=== PATIENT | male | born 1970 | race Caucasian/White ===

== ENCOUNTER 2024-01-01 19:39 | Emergency (ER) | payer MEDICARE, SELFPAY ==
[2024-01-01 19:40] VITALS: BP 156/112
[2024-01-01 20:00] VITALS: BP 138/103
[2024-01-01 20:03] LABS: % Basophils 0.3 % (0-2); % Eosinophils 0.3 % (0-6); % Immature Granulocytes 0.4 % (0-0.5); % Lymphocytes 12.6 % (20.5-51.1); % Monocytes 11.9 % (1.7-9.3); % Neutrophils 74.5 % (42.2-75.2); Absolute Basophils 0.1 10^3/uL (0-0.2); Absolute Immature Granulocytes 0.1 10^3/uL (0-0.05); Absolute Monocytes 1.9 10^3/uL (0.1-0.6); Absolute Neutrophils 11.9 10^3/uL (1.4-6.5); Hematocrit 47.9 % (39.0-52.0); Hemoglobin 16.3 g/dL (13.0-18.0); Mean Corpuscular Hgb 29.1 pg (27.0-31.0); Mean Corpuscular Volume 85.4 fL (80.0-94.0); Mean Platelet Volume 9.6 fL (7.4-10.4); Nucleated Red Blood Cells % 0 % (-); Platelet Count 268 10^3/uL (130-400); Red Blood Cell Count 5.61 10^6/uL (4.70-6.10); Red Cell Dist. Width 12.6 % (11.5-14.5); White Blood Cell Count 15.9 10^3/uL (4.8-10.8)
[2024-01-01 20:11] LABS: Urine Albumin Trace (Neg - Trace); Urine Bilirubin Negative (Negative); Urine Character Very Cloudy (Clear); Urine Color Yellow; Urine Glucose Negative (Negative); Urine Ketone Negative (Negative); Urine Leukocyte Trace (Negative); Urine Nitrite Negative (Negative); Urine Occult Blood 4+ (Negative); Urine Specific Gravity 1.015 (<1.030); Urine Urobilinogen Negative (Neg - 1+)
[2024-01-01 20:16] LABS: ALT (SGPT) 29 U/L (0-50); AST (SGOT) 36 U/L (17-59); Alkaline Phosphatase 76 U/L (38-126); Blood Urea Nitrogen 22 mg/dl (9-20); Calcium 10.6 mg/dl (8.4-10.2); Carbon Dioxide 26 mmol/L (22-30); Chloride 100 mmol/L (98-107); Glucose 90 mg/dl (70-99); Potassium 4.9 mmol/L (3.5-5.1); Sodium 141 mmol/L (135-145); Total Bilirubin 0.8 mg/dl (0.2-1.3); eGFR 59.73
[2024-01-01 21:10] LABS: Urine Bacteria Few (Negative); Urine Red Blood Cell >100 /HPF (0-2)
[2024-01-01 21:26] VITALS: BP 138/103
[2024-01-01 22:00] VITALS: BP 131/91
--- NOTE | 2024-01-01 22:27 | ED.GENMED ---
History of Present Illness
General
Chief Complaint: Abdominal Pain
Source: patient
Time Seen by Provider: 01/01/24 21:13
History of Present Illness
History of Present Illness:
53-year-old male presents emergency room complaining of right-sided lower abdominal pain. Pain was noted this morning and persisted through the day. Pain resolved by this afternoon but then he noticed hematuria. Patient has had kidney stones in
the past. No fever or chills.
Phy Exam
Physical Exam
Physical Exam:
General: Awake, Alert, Oriented X3. No acute distress.
Vitals: unremarkable
Head: Atraumatic
Eyes: Pupils equal, EOMI
Throat: Airway intact, no exudates
Neck: Trachea midline
Lungs: Clear and equal b/l
Heart: Regular rate, no murmurs
Abd: Soft, Nontender, No pulsatile mass
Back: No significant CVA tenderness
Neuro: Nonfocal
Skin: Warm, dry, no rash
Extremities: pulses equal b/l, no edema
Course
Orders/Labs/Results
Orders:
Orders
01/01/24 19:52
Complete Blood Count/With Diff Urgent
Comprehensive Metabolic Panel Urgent
Urinalysis Reflex To Culture Urgent
Date Specimen was Collected: 01/01/24
Time Specimen was Collected: 19:46
Urine Microscopic Reflex Cult Urgent
01/01/24 22:27
CT Abd/pel Without Iv Or Oral Urgent
Comment:
Reason For Exam: r sided pain, hematuria
01/01/24 23:07
Oxycodone [Roxicodone] 5 mg PO NOW STA
Abnormal Lab Results
01/01/24
19:52
WBC 15.9 H 10^3/uL
(4.8-10.8)
Abs Immat Gran (auto) 0.1 H 10^3/uL
(0-0.05)
Absolute Neuts (auto) 11.9 H 10^3/uL
(1.4-6.5)
Absolute Monos (auto) 1.9 H 10^3/uL
(0.1-0.6)
Lymphocytes % 12.6 L %
(20.5-51.1)
Monocytes % 11.9 H %
(1.7-9.3)
BUN 22 H mg/dl
(9-20)
Creatinine 1.4 H mg/dL
(0.7-1.3)
Calcium 10.6 H mg/dl
(8.4-10.2)
Ur Occult Blood Reflex 4+ A
(Negative)
Leukocyte Esterase Rfl Trace A
(Negative)
Urine RBC >100 A /HPF
(0-2)
Urine Bacteria (Reflex) Few A
(Negative)
01/01/24 19:52
01/01/24 19:52
Vital Signs
Initial and Last Documented VS:
Initial Vital Signs
Temp Pulse Resp BP Pulse Ox
97.2 F 76 18 156/112 99
01/01/24 19:40 01/01/24 19:40 01/01/24 19:40 01/01/24 19:40 01/01/24 19:40
Last Documented Vital Signs
Temp Pulse Resp BP Pulse Ox
97.2 F 81 20 131/91 98
01/01/24 19:40 01/01/24 20:00 01/01/24 20:00 01/01/24 22:00 01/01/24 20:00
MDM/Problems Addressed
Differential Diagnosis Includes:
kidney stone, uti, appy
MDM/Problems Addressed:
Pt has presentation which seems more c/w ureteral stone than anything else. CT confirms presence of stone. Pt very comfortable at the time of ER visit but discharged with oxycodone if pain returns. Recommend urology follow up.
*Radiology
Radiology exam reviewed: radiology read reviewed
*Pulse Oximetry
Patient hypoxic: no
*Critical Care Note
Total Time (30-74mins, 75-104mins- exclusive of procedures): Not Applicable
ED Attending Note
-
Portions of this chart may have been created with voice recognition software.� Occasional wrong word or��sound alike� substitutions may have occurred due to the inherent limitations of voice recognition software.
Discharge Plan
Departure
Patient Disposition: Home (Routine Discharge)
Date of Disposition: 01/01/24
Time of Disposition: 23:00
Patient with high blood pressure during this ER visit?: No
Condition: Good
Discharge Problem:
Kidney stone on right side
Instructions: Kidney Stone, Adult ED
Prescriptions:
New
tamsulosin [Flomax] 0.4 mg capsule
0.4 mg PO DAILY Qty: 14 0RF
oxycodone 5 mg tablet
5 mg PO Q6H PRN (Reason: Pain) Qty: 12 0RF
Referrals:
Naeem Martinez MD [Family Provider] -
Activity Restrictions/Additional Instructions:
Please follow up with your urologist.
Interventions
Interventions:
*Risk Screen - Suicide Last Done: 01/01/24 19:40
*General Assessment Last Done: 01/01/24 19:40
*Neglect/Abuse Screening Last Done: 01/01/24 19:40
ED- Fall Risk Assessment Last Done: 01/01/24 22:14
*ED COVID-19 Vaccine History Last Done: 01/01/24 19:40
*Nursing Disposition Last Done: 01/01/24 23:46
[facility]-Boxlzk-Hopqxtvujr Assessment Last Done: 01/01/24 22:14
Discharge Date and Time
Discharge Date/Time: 01/01/24 23:47
Print Language: [id number]
[2024-01-01] MEDS: ROXICODONE 5 MG PO (23:29)
== END 2024-01-01 23:47 | disposition home or self-care (01) ==
LOC: EMR 19:39
PROVIDERS: Student in an Organized Health Care Education/Training Program; EMERGENCY PHYSICIAN Emergency Medicine; FAMILY PHYSICIAN Internal Medicine
DX: N13.2 Hydronephrosis with renal and ureteral calculous obstruction (principal)
CPT/HCPCS: 99284; 74176; 80053; 81003; 81015; 85025